=== PATIENT | female | born 1950 | race Caucasian/White ===

== ENCOUNTER → 2016-09-21 | Outpatient (CLI) | payer OTHER ==
[~2016-09-21] MED LIST: CARDIZEM CD; CARDIZEM CD PO; FERROUS SULFATE PO; FORTAMET1000 MG/B1 PO; GLUCOTROL PO; KETOPROFEN; LEVAQUIN PO; LEVOXYL; LORTAB 7.5-5001 TAB; MICARDIS HCT; MICARDIS PO; PRAVASTATIN SOD40 MG PO; PRILOSEC20 MG PO; PROTONIX PO; SKELAXIN; SYNTHROID PO; VICODIN 5/500 T1 TAB; VYTORIN 10/20 T1 TAB; ZOLPIDEM TARTRA10 MG PO
--- NOTE | ~2016-09-21 | US140 ---
[facility] A Service of [facility] RADIOLOGY TEXT RESULTS PATIENT: QUINTIN TABARES I LOCATION: [facility] : 54 UNIT #: [id number] AGE: [address]: ALISA COATES MD (INT MED) SEX: F ORDER DR: [id number] [facility] [address] [place], [place] [address] [id number] O MR#: [id number] Acc #: [id number] NAME: QUINTIN TABARES : 1950 SEX: F STUDY DATE/TIME: 09/21/2016 11:14 UNIT: [facility] ROOM: STUDY DESCRIPTION: [facility] [employer] Stdy Attending Physician: Alisa Coates M.D. Referring Physician: Alisa Coates M.D. Ordering Physician: Alisa Coates M.D. Primary Care Physician: Alisa Coates M.D. MEDICAL IMAGING REPORT This report is preliminary unless electronic signature is present EXAM Upper extremity venous ultrasound right HISTORY Pain has needle-like pain since 2004 in upper right arm over the last week in has felt so sore and heavy no swelling has had pain since lumpectomy 2005 diabetic, hypertension, hyperlipidemia. FINDINGS Realtime ultrasonography right upper extremity venous structures performed. Lassiter-scale color Doppler Doppler pulse-wave interrogation utilized. Right internal jugular, subclavian, axillary, brachial veins patent with normal compressibility and color Doppler interrogation demonstrating [id number] flow. Radial and ulnar veins are patent. Cephalic and basilic veins are patent with normal compressibility and color Doppler interrogation. IMPRESSION No right upper extremity deep or superficial venous thrombosis seen at time of this examination. Dictated by... Mikael Smith M.D. THIS IS AN ELECTRONICALLY VERIFIED REPORT Mikael Smith M.D. at 09/25/2016 5:45 PM VIBHA/shanna TD: 09/21/2016 16:01 [facility] A Service of [facility] RADIOLOGY TEXT RESULTS PATIENT: QUINTIN TABARES I LOCATION: [facility] #: [id number] : 54 UNIT #: [id number] AGE: [address]: ALISA COATES MD (INT MED) SEX: F ORDER DR: BRETT #: [id number] MEDICAL IMAGING REPORT Page 1 of 1 COPY
--- NOTE | ~2016-09-21 | MY25 ---
[facility] A Service of [facility] RADIOLOGY TEXT RESULTS PATIENT: QUINTIN TABARES I LOCATION: [facility] : 54 UNIT #: [id number] AGE: [address]: ALISA COATES MD (INT MED) SEX: F ORDER DR: [id number] [facility] [address] [place], [place] [address] [id number] O MR#: [id number] Acc #: [id number] NAME: QUINTIN TABARES : 1950 SEX: F STUDY DATE/TIME: 09/21/2016 8:22 UNIT: [facility] ROOM: STUDY DESCRIPTION: MADAN RONEY MARIALUISA W/ CAD UNI RT Attending Physician: Alisa Coates M.D. Referring Physician: Alisa Coates M.D. Ordering Physician: Alisa Coates M.D. Primary Care Physician: Alisa Coates M.D. MEDICAL IMAGING REPORT This report is preliminary unless electronic signature is present EXAM Right diagnostic mammogram. HISTORY Right breast swelling associated with the right lumpectomy scar. History of right breast cancer status post right lumpectomy. COMPARISON Mammogram dated 03/10/2016 and 02/02/2015. FINDINGS RIGHT MAMMOGRAM: CC, MLO, ML, and exaggerated CC views of the right breast were obtained. The background breast parenchyma consists of scattered fibroglandular densities. There is a scar in the upper outer quadrant of the right breast associated with the prior lumpectomy. This is unchanged. No new mass, microcalcification, or architectural distortion. Given the skin changes and palpable abnormality, diagnostic right breast ultrasound was performed. RIGHT BREAST ULTRASOUND: Lassiter-scale and color-Doppler ultrasound of the right breast was performed. In the upper outer quadrant of the right breast, there are no focal abnormalities identified. Patient does have some scar tissue which correlates with the mammographic finding from the prior lumpectomy. No suspicious ultrasound findings are identified. No evidence of malignancy. IMPRESSION Benign right breast mammogram and right breast ultrasound. Post lumpectomy changes in the right upper quadrant, however, no focal abnormalities identified. STS. [facility] A Service of [facility] RADIOLOGY TEXT RESULTS PATIENT: QUINTIN TABARES I [id number] 54 UNIT #: [id number] AGE: [address]: ALISA COATES MD (INT MED) SEX: F ORDER DR: RECOMMENDATIONS Continued clinical followup of the area of skin swelling. If the physical exam or personal exam changes, repeat imaging can be obtained. Patients over the age of 40 are entered into a reminder system with target due date for the next mammogram. A result letter will also be sent to the patient. BIRADS: 2 Benign finding. Dictated by... Josep Zaragoza M.D. THIS IS AN ELECTRONICALLY VERIFIED REPORT Josep Zaragoza M.D. at 09/21/2016 12:39 PM ADELAIDE/renny TD: 09/21/2016 12:05 JOB #: [id number] MEDICAL IMAGING REPORT Page 1 of 1 COPY
--- NOTE | ~2016-09-21 | US24 ---
[facility] A Service of [facility] RADIOLOGY TEXT RESULTS PATIENT: QUINTIN TABARES I LOCATION: [facility] : 54 UNIT #: [id number] AGE: [address]: ALISA COATES MD (INT MED) SEX: F ORDER DR: [id number] [facility] [address] [place], [place] [address] [id number] O MR#: [id number] Acc #: [id number] NAME: QUINTIN TABARES : 1950 SEX: F STUDY DATE/TIME: 09/21/2016 8:42 UNIT: [facility] ROOM: STUDY DESCRIPTION: US Breast Unilateral Attending Physician: Alisa Coates M.D. Referring Physician: Alisa Coates M.D. Ordering Physician: Alisa Coates M.D. Primary Care Physician: Alisa Coates M.D. MEDICAL IMAGING REPORT This report is preliminary unless electronic signature is present EXAM Right breast ultrasound INDICATION Skin thickening of the right breast near the site of the patient's prior lumpectomy. History of right-sided breast cancer status post lumpectomy. FINDINGS Please refer to diagnostic mammogram report for details on the ultrasound. IMPRESSION Benign right breast ultrasound. BIRADS: 2 Benign findings Dictated by... Josep Zaragoza M.D. THIS IS AN ELECTRONICALLY VERIFIED REPORT Josep Zaragoza M.D. at 09/21/2016 4:26 PM ADELAIDE/jacquelyn TD: 09/21/2016 15:04 JOB #: [id number] MEDICAL IMAGING REPORT Page 1 of 1 COPY
== END | disposition home or self-care (01) ==
LOC: CMAM 07:49
DX: N63 Unspecified lump in breast (principal); N64.4 Mastodynia; M79.601 Pain in right arm; M79.89 Other specified soft tissue disorders; Z85.3 Personal history of malignant neoplasm of breast; Z98.890 Other specified postprocedural states
CPT/HCPCS: 76641; 93971; G0206